=== PATIENT | male | born 1995 | race Two or more races ===

== ENCOUNTER 2022-04-01 22:26 | Emergency (ER) | payer BC, OTHER ==
[~2022-04-01] VITALS: Ht 175.3 cm; Wt 99.8 kg
[2022-04-02 00:15] VITALS: BP 137/94
[2022-04-02] MEDS: IPRATROPIUM BROM 0.5 MG/2.5ML INH SOL NEB ONE (04:38)
[2022-04-02] MEDS: ALBUTEROL SULF 2.5 MG/0.5ML(0.5%) NEB SOLN NEB ONE (04:39)
[2022-04-02] MEDS ORDERED: ALBUAER3 IN (04:59)
[2022-04-02] MEDS ORDERED: PRED20TA2 PO (04:59)
== END 2022-04-02 05:00 | disposition home or self-care (01) ==
LOC: ER 22:26
DX: R06.02 Shortness of breath (principal)
CPT/HCPCS: 71045; 94640; 99283; J7644

== ENCOUNTER 2023-10-02 11:25 | Emergency (ER) | payer BC ==
[~2023-10-02] VITALS: Ht 175.3 cm; Wt 108.1 kg
[~2023-10-02 11:25] MED LIST: ALBUAER3 IN; PRED20TA2 PO
[2023-10-02 12:16] VITALS: TEMP 97.9
[2023-10-02] MEDS ORDERED: LIDO2SOL26 MT (12:45)
[2023-10-02] MEDS ORDERED: AZIT500T66 PO (12:45)
[2023-10-02 13:16] VITALS: BP 152/99; PULSE 72; RESP 17; O2SAT 96
== END 2023-10-02 13:17 | disposition home or self-care (01) ==
LOC: ER 11:25
DX: J03.90 Acute tonsillitis, unspecified (principal); Z79.899 Other long term (current) drug therapy